=== PATIENT | female | born 1990 | race Caucasian/White ===

== ENCOUNTER 2019-10-08 19:46 | Emergency (ER) | payer OTHER ==
[~2019-10-08] VITALS: Ht 172.7 cm; Wt 102.5 kg
[2019-10-08 21:36] LABS: BASO # 0.1 10^3/uL (0.0-0.2); BASO % 0.4 % (0.0-1.0); EOS # 0.6 10^3/uL (0.0-0.5); EOS % 4.9 % (0.0-3.0); HEMATOCRIT 40.8 % (36.0-47.0); HEMOGLOBIN 13.4 g/dl (12.0-15.5); LYMPH # 2.7 10^3/uL (1.5-5.0); LYMPH % 22.6 % (24.0-44.0); MEAN CORPUSCULAR HEMOGLOBIN 30.8 pg (27.0-33.0); MEAN CORPUSCULAR HGB CONC 32.8 g/dl (32.0-36.5); MEAN CORPUSCULAR VOLUME 93.8 fl (80.0-96.0); MONO # 0.6 10^3/uL (0.0-0.8); MONO % 4.9 % (0.0-5.0); NEUTROPHILS # 7.8 10^3/uL (1.5-8.5); NEUTROPHILS % 66.7 % (36.0-66.0); PLATELET COUNT, AUTOMATED 269 10^3/uL (150-450); RED BLOOD COUNT 4.35 10^6/uL (4.00-5.40); WHITE BLOOD COUNT 11.7 10^3/uL (4.0-10.0)
[2019-10-08 22:20] LABS: BLOOD UREA NITROGEN 9 MG/DL (7-18); CALCIUM LEVEL 8.8 MG/DL (8.5-10.1); CARBON DIOXIDE LEVEL 25 MEQ/L (21-32); CHLORIDE LEVEL 110 MEQ/L (98-107); CK-MB VALUE MASS < 1.0 NG/ML (<3.6); CPK CREATINE PHOSPHOKINASE 67 U/L (26-192); CREATININE FOR GFR 0.65 MG/DL (0.55-1.30); FREE T4 1.03 NG/DL (0.76-1.46); GLOMERULAR FILTRATION RATE > 60.0 (>60); GLUCOSE, FASTING 91 MG/DL (70-100); MB/CK RELATIVE INDEX 1.49 (< OR =4); POTASSIUM SERUM 4.2 MEQ/L (3.5-5.1); SODIUM LEVEL 135 MEQ/L (136-145); TROPONIN I < 0.02 NG/ML (< 0.10)
--- NOTE | 2019-10-08 22:50 | REPVR ---
PROCEDURE INFORMATION: Exam: XR Chest, 1 View Exam date and time: 10/08/2019 9:13 PM Age: 29 years old Clinical indication: Other: Chest pain TECHNIQUE: Imaging protocol: XR of the chest Views: 1 view. COMPARISON: No relevant prior studies available. FINDINGS: Lungs: Unremarkable. No consolidation. Pleural space: Unremarkable. No pleural effusion. No pneumothorax. Heart/Mediastinum: Unremarkable. No cardiomegaly. Bones/joints: Unremarkable. IMPRESSION: No acute findings. Electronically signed by: Glen More On 10/08/2019 22:50:32 PM
[2019-10-08 23:00] VITALS: BP 140/88
--- NOTE | 2019-11-02 14:41 | ECGEPIP ---
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
== END 2019-10-08 23:01 | disposition home or self-care (01) ==
LOC: M ED 19:46
DX: R07.9 Chest pain, unspecified (principal); M79.602 Pain in left arm; Z11.59 Encounter for screening for other viral diseases
CPT/HCPCS: 36415; 71045; 80048; 82550; 82553; 84439; 84443; 84484; 85025; 93005; 99284; U0002

== ENCOUNTER → 2021-09-24 | Outpatient (REF) | LOC: M EMP 06:37 | PROVIDERS: ATTEND Family Medicine | DX: Z20.822 Contact with and (suspected) exposure to COVID-19 (principal); Z11.52 Encounter for screening for COVID-19 ==

== ENCOUNTER → 2021-10-23 | Outpatient (REF) ==
[2021-10-23 11:08] LABS: RSV AMPLIFICATION NEGATIVE (NEGATIVE)
== END ==
LOC: M LABSMTC 09:33
PROVIDERS: ATTEND Family Medicine
DX: Z20.828 Contact with and (suspected) exposure to other viral communicable diseases (principal)

== ENCOUNTER → 2022-02-04 | Outpatient (REF) | payer BC ==
[2022-02-04 18:02] LABS: APPEARANCE, URINE MANUAL CLEAR (CLEAR); BILIRUBIN, URINE MANUAL NEGATIVE (NEGATIVE); BLOOD URINE MANUAL TRACE (NEGATIVE); COLOR, URINE MANUAL YELLOW (YELLOW); GLUCOSE, URINE (UA) MANUAL NEGATIVE (NEGATIVE); KETONE, URINE MANUAL NEGATIVE (NEGATIVE); LEUKOCYTE ESTERASE, URINE MAN POSITIVE (NEGATIVE); NITRITE, URINE MANUAL NEGATIVE (NEGATIVE); PROTEIN, URINE MANUAL NEGATIVE (NEGATIVE); UROBILINOGEN, URINE MANUAL NORMAL (NORMAL)
[2022-02-04 18:31] LABS: GC DNA AMPLIFICATION NEGATIVE (NEGATIVE)
[2022-02-04 18:37] LABS: BACTERIA, URINE SMALL AMOUNT; SQUAMOUS EPITHELIAL CELL URINE MOD AMOUNT /hpf (SMALL AMT)
== END ==
LOC: M LAB REF 16:30
PROVIDERS: ATTEND Physician Assistant Medical
DX: N39.0 Urinary tract infection, site not specified (principal)

== ENCOUNTER 2022-06-19 07:32 | Emergency (ER) | payer OTHER, BC ==
[~2022-06-19] VITALS: Ht 172.7 cm; Wt 104.5 kg
[2022-06-19] MEDS ORDERED: VITMTA PO (07:38)
[2022-06-19] MEDS ORDERED: ACETAMINOPHEN TAB 650MG DOSE (2X325MG) PO ONE (08:45)
[2022-06-19] MEDS ORDERED: KETOROLAC 60MG 2ML VIAL IM ONE (08:45)
[2022-06-19] MEDS ORDERED: CYCL-707 PO (10:17)
[2022-06-19] MEDS ORDERED: KETO10TAB PO (10:17)
[2022-06-19 10:31] VITALS: BP 180/95
== END 2022-06-19 11:14 | disposition home or self-care (01) ==
LOC: M ED 07:32
DX: S39.012A Strain of muscle, fascia and tendon of lower back, initial encounter (principal); X50.0XXA Overexertion from strenuous movement or load, initial encounter; Z91.040 Latex allergy status; Z91.048 Other nonmedicinal substance allergy status; Z79.810 Long term (current) use of selective estrogen receptor modulators (SERMs); Z79.899 Other long term (current) drug therapy; Y93.F2 Activity, caregiving, lifting; Y99.0 Civilian activity done for income or pay
CPT/HCPCS: 96372; 99283; J1885

== ENCOUNTER → 2022-07-10 | Outpatient (REF) ==
[~2022-07-10] MED LIST: CYCL-707 PO; KETO10TAB PO; VITMTA PO
== END ==
LOC: M EMP 15:24
PROVIDERS: ATTEND Family Medicine
DX: Z11.52 Encounter for screening for COVID-19 (principal)

== ENCOUNTER 2022-08-12 12:17 | Emergency (ER) | payer OTHER, BC ==
[~2022-08-12] VITALS: Ht 172.7 cm; Wt 98.8 kg
[2022-08-12 12:17] VITALS: O2SAT 99
[2022-08-12] MEDS ORDERED: IBUPROFEN 800 MG TAB PO ONE (15:15)
[2022-08-12 15:28] VITALS: BP 140/72; TEMP 97.8
== END 2022-08-12 15:30 | disposition home or self-care (01) ==
LOC: M ED 12:17
DX: S60.221A Contusion of right hand, initial encounter (principal); W23.0XXA Caught, crushed, jammed, or pinched between moving objects, initial encounter; Z91.040 Latex allergy status; Z91.048 Other nonmedicinal substance allergy status; Z79.810 Long term (current) use of selective estrogen receptor modulators (SERMs); Z79.899 Other long term (current) drug therapy; Y99.0 Civilian activity done for income or pay